=== PATIENT | female | born 1955 | race African-American/Black ===

== ENCOUNTER 2018-10-12 12:01 | Emergency (ER) | payer MEDICARE, BC ==
[~2018-10-12] VITALS: Ht 160 cm; Wt 75.0 kg
[~2018-10-12 12:01] MED LIST: ACET-2047; ENAL5TAB PO; HYDR25TA PO
[2018-10-12] MEDS ORDERED: ASPIRIN 81MG TABLET PO ONE (12:45)
[2018-10-12 13:14] LABS: EOSINOPHILS % 0.7 % (0.0-5.0); HEMATOCRIT. 43.9 % (36.0-48.0); HEMOGLOBIN. 14.6 g/dL (12.0-16.0); LYMPHOCYTES % 22.9 % (20.0-50.0); MEAN CORPUSCULAR HEMOGLOBIN 30.9 pg (28.0-32.0); MEAN CORPUSCULAR VOLUME 93.2 fL (81.0-99.0); MEAN PLATELET VOLUME 11.6 fl (7.4-10.4); MONOCYTES % 9.1 % (2.0-8.0); NEUTROPHILS % 66.3 % (40.0-76.0); PLATELET 141 x1000/uL (130-400); RED BLOOD CELL COUNT 4.71 mill/uL (4.2-5.4); RED CELL DISTRIBUTION WIDTH 13.8 % (11.6-14.6)
[2018-10-12 13:21] LABS: CHLORIDE 108 mEq/L (98-107)
[2018-10-12 14:16] VITALS: BP 176/65
== END 2018-10-12 15:31 | disposition home or self-care (01) ==
LOC: ER 12:01 → CANBEDREQ 18:48
DX: R07.89 Other chest pain (principal); R55 Syncope and collapse; I10 Essential (primary) hypertension
CPT/HCPCS: 36415; 71045; 83880; 84484; 93005; 99284

== ENCOUNTER 2019-07-05 12:30 | Emergency (ER) | payer MEDICARE, BC ==
[~2019-07-05] VITALS: Ht 160 cm; Wt 77.0 kg
[2019-07-05] MEDS ORDERED: MORPHINE SULFATE 4 MG/ML CPJ (NOT FOR IM USE) IV STA (14:13)
[2019-07-05 14:32] LABS: BASOPHILS % 0.8 % (0.0-2.0); EOSINOPHILS % 2.1 % (0.0-5.0); HEMATOCRIT. 42.4 % (36.0-48.0); LYMPHOCYTES % 30.2 % (20.0-50.0); MEAN CORPUSCULAR HEMOGLOBIN 31.2 pg (28.0-32.0); MEAN CORPUSCULAR VOLUME 94.4 fL (81.0-99.0); MEAN PLATELET VOLUME 12.1 fl (7.4-10.4); MONOCYTES % 6.9 % (2.0-8.0); PLATELET 138 x1000/uL (130-400)
[2019-07-05 14:35] LABS: CHLORIDE 111 mEq/L (98-107)
[2019-07-05 15:49] VITALS: BP 134/65
== END 2019-07-05 16:19 | disposition home or self-care (01) ==
LOC: ER 12:43
DX: R07.89 Other chest pain (principal); I10 Essential (primary) hypertension; Z79.899 Other long term (current) drug therapy
CPT/HCPCS: 36415; 71045; 80053; 83880; 84484; 85025; 93005; 96374; 99284; J2270

== ENCOUNTER 2024-11-19 09:13 | Emergency (ER) | payer MEDICARE, BC ==
[~2024-11-19] VITALS: Ht 160 cm; Wt 74.8 kg
[~2024-11-19 09:13] MED LIST changes: +ENAL-75 PO; -ENAL5TAB PO
[2024-11-19 09:17] VITALS: O2SAT 100
[2024-11-19] MEDS: LIDOCAINE 5% PATCH TOP NR (09:45)
[2024-11-19] MEDS ORDERED: LIDOCAINE 5% PATCH TOP SCH (09:45)
[2024-11-19] MEDS: ACETAMINOPHEN 325MG TABLET PO ONE (09:57)
[2024-11-19] MEDS: KETOROLAC 30MG/ML VIAL IM ONE (09:57)
[2024-11-19] MEDS ORDERED: ACET-2708 MT (10:35)
[2024-11-19] MEDS ORDERED: CYCL5TAB3 MT (10:35)
[2024-11-19] MEDS ORDERED: LIDO700A15 TP (10:35)
[2024-11-19 11:37] VITALS: BP 134/68; PULSE 78; RESP 14; TEMP 36.9; O2SAT 100
== END 2024-11-19 11:30 | disposition home or self-care (01) ==
LOC: ER 09:13
DX: S20.219A Contusion of unspecified front wall of thorax, initial encounter (principal); I10 Essential (primary) hypertension; Z79.899 Other long term (current) drug therapy; W10.9XXA Fall (on) (from) unspecified stairs and steps, initial encounter; Y93.89 Activity, other specified; Y92.89 Other specified places as the place of occurrence of the external cause; Y99.8 Other external cause status
CPT/HCPCS: 99283; 71101; 96372; J1885